=== PATIENT | male | born 1975 | race Caucasian/White ===

== ENCOUNTER → 2018-05-13 | Outpatient (CLI) | payer MEDICAID ==
[2018-05-13 15:54] LABS: Appearance,Urine Clear (Clear); Basophils % (A) 0 %; Bilirubin,Urine Negative (Negative); Blood,Urine Negative (Negative); Color,Urine Yellow; Eosinophils % (A) 0 %; Glucose,Urine (UA) Negative (Negative); HCT 36.7 % (39.0-53.0); HGB 12.6 gm/dL (13.0-17.5); Ketones,Urine Negative (Negative); Leukocyte Esterase,Urine Negative (Negative); Lymphocytes # (A) 0.4 k/uL (1.0-4.8); Lymphocytes % (A) 6 %; MCH 29.9 pg (25.0-35.0); MCHC 34.2 g/dL (31.0-37.0); MCV 87.4 fL (80.0-100.0); Monocytes # (A) 0.3 k/uL (0-1.0); Monocytes % (A) 5 %; Neutrophils # (A) 5.3 k/uL (1.3-7.7); Neutrophils % (A) 88 %; Nitrite,Urine Negative (Negative); PH, Urine 6.5 (5.0-8.0); Platelet Count 165 k/uL (150-450); Protein,Urine Negative (Negative); RDW 13.6 % (11.5-15.5); Specific Gravity,Urine 1.021 (1.001-1.035)
[2018-05-13 17:11] LABS: Erythrocyte Sedimentation Rate 16 mm/hr (0-15)
[2018-05-14 01:17] LABS: Protein, Total 7.3 g/dL (6.2-8.2)
[2018-05-14 01:19] LABS: Rheumatoid Factor 9 IU/mL (0-15)
[2018-05-14 01:29] LABS: Vitamin D 25 Hydroxy 33.6 ng/mL (30.0-100.0)
[2018-05-14 03:06] LABS: Albumin 5.2 g/dL (3.80-4.90); Albumin/Globulin Ratio 2.17 (1.60-3.17); C Reactive Protein 3.5 mg/dL (0.0-0.8); Globulin 2.4 g/dL (1.6-3.3); Potassium 3.9 mmol/L (3.5-5.5); T4, Free (Free Thyroxine) 0.8 ng/dL (0.80-1.80); Total Bilirubin 0.5 mg/dL (0.3-1.2); Total Protein 7.6 g/dL (6.2-8.2); Uric Acid 4.2 mg/dL (3.7-8.7)
[2018-05-14 03:51] LABS: Hepatitis C IgG Antibody Non-Reactive (Non-Reactive)
[2018-05-14 04:07] LABS: Cardiolipin Ab IgG Interp NEGATIVE (NEGATIVE); Cardiolipin Ab IgM Interp NEGATIVE (NEGATIVE); Cardiolipin IgA Antibody <0.5 U/mL; Cardiolipin IgM Antibody 0.5 U/mL; Cyclic Citrullinated Pep IgG NEGATIVE (NEGATIVE); DNA Double-Stranded NEGATIVE (NEGATIVE); RNP 0.2 AI; Scleroderma SC-70 Ab <0.2 AI
--- NOTE | 2018-05-14 07:56 | XR ---
EXAMINATION TYPE: XR hand complete bilateral DATE OF EXAM: 05/13/2018 CLINICAL HISTORY: Bilateral hand pain with no known injury TECHNIQUE: Frontal, lateral and oblique images of the bilateral hands were obtained. COMPARISON: 05/13/2018 FINDINGS: There is no acute fracture/dislocation evident in the either hand. The joint spaces in the both hands demonstrate very mild joint space narrowing of the first carpometacarpal joints bilateral ly with very small marginal osteophytes. Bony proliferation is also seen of the distal interphalange al joint of the second and third digits on the right. The overlying soft tissue appears unremarkable. IMPRESSION: There is no acute fracture or dislocation in either hand. Mild arthropathy is seen bilat erally with the distribution on the right suggesting early osteoarthritis.
--- NOTE | 2018-05-14 08:51 | XR ---
EXAMINATION TYPE: XR wrist complete BILATERAL DATE OF EXAM: 05/13/2018 COMPARISON: Bilateral hand radiograph's of the same date HISTORY: Bilateral wrist pain for months with no known injury. TECHNIQUE: 4 views of bilateral wrists were obtained. FINDINGS: No acute fracture or dislocation is seen of either wrist. Very small marginal mass effect a re seen of the first carpal metacarpal joints bilaterally. Soft tissues are unremarkable. Osseous dem ineralization is also within normal limits. IMPRESSION: Mild bilateral arthropathy at the first carpometacarpal joints.
[2018-05-14 09:33] LABS: Angiotensin-1 Converting Enz. 4 U/L (8-52)
[2018-05-14 12:18] LABS: HLA B27 NEGATIVE
[2018-05-14 13:11] LABS: APTT 38 Sec(s) (<43); Dilute Russell Viper Venom 42 Sec(s) (<44)
[2018-05-14 14:31] LABS: C-ANCA <1:20 Titer (<1:20); P-ANCA <1:20 Titer (<1:20)
[2018-05-15 09:00] LABS: Aldolase 3.4 U/L (1.2-7.6)
[2018-05-16 07:28] LABS: Albumin 4.39 g/dL (3.80-4.90); Gamma Globulin 0.96 g/dL (0.70-1.50)
== END | disposition home or self-care (01) ==
LOC: LABWHC1 14:56
PROVIDERS: ATTEND Physician Assistant Medical
DX: M18.0 Bilateral primary osteoarthritis of first carpometacarpal joints (principal); R76.8 Other specified abnormal immunological findings in serum
CPT/HCPCS: 36415; 80053; 81003; 82085; 82164; 82306; 82550; 83520; 83883; 84165; 84439; 84443; 84550; 85025; 85613; 85652; 85730; 86038; 86140; 86147; 86160; 86162; 86200; 86225; 86235; 86255; 86334; 86431; 86803; 86812; 87340

== ENCOUNTER → 2018-07-04 | Day surgery (SDC) | payer MEDICAID ==
[2018-07-02 10:57] VITALS: BMI 33.2
[~2018-07-04] MED LIST: LACTATED RINGERS 1,000 ML IV SCH; LIDOCAINE 1% 20 ML VIAL (10MG/ML) FOR IV START INTRADERMA ONE; PROPOFOL 10 MG/ML 20 ML VIAL IV ONE; Pre Op ABX Message 1 EACH MISC MISCELLANE ONE
[2018-07-04 12:00] VITALS: TEMP 97.1
--- NOTE | 2018-07-04 13:09 | P.PCN ---
Date of Procedure: 07/04/18 Preoperative Diagnosis: Anemia and intermittent pancytopenia Postoperative Diagnosis: Same Procedure(s) Performed: Bone marrow aspiration and biopsy Anesthesia: MAC Surgeon: Bryce Velasquez Renderer #1: Stated None Estimated Blood Loss (ml): 2 Pathology: other Condition: stable Disposition: same day Indications for Procedure: Persistent normochromic normocytic anemia, and intermittent pancytopenia, with negative workup Operative Findings: Adequate sample Description of Procedure: The procedure was explained in detail to the patient in the office. He presented to the outpatient endoscopy suite where IV access and informed consent was obtained. He was then placed in the left lateral decubitus position. The area over both posterior iliac crest was cleaned and prepped with chlorhexidine and sterile draping. IV sedation was then initiated. Local anesthesia was administered to the right posterior iliac crest with lidocaine. A Jamshidi needle was then inserted and bone marrow aspirate and biopsy obtained. The first biopsy sample was quite small due to which his second pass was made with a better sample obtained. On withdrawal of the needle hemostasis was easily achieved. Blood loss was minimal and recovery from sedation was satisfactory. He appeared to have tolerated the procedure well without any obvious immediate complications.
[2018-07-04 13:17] LABS: Basophils % (A) 1 %; Eosinophils # (A) 0.1 k/uL (0-0.7); Eosinophils % (A) 4 %; HCT 34.8 % (39.0-53.0); HGB 11.8 gm/dL (13.0-17.5); Lymphocytes # (A) 1.1 k/uL (1.0-4.8); Lymphocytes % (A) 38 %; MCH 29.5 pg (25.0-35.0); MCHC 33.8 g/dL (31.0-37.0); MCV 87.3 fL (80.0-100.0); Mean Platelet Volume 7.6; Monocytes # (A) 0.2 k/uL (0-1.0); Monocytes % (A) 7 %; Neutrophils # (A) 1.4 k/uL (1.3-7.7); Neutrophils % (A) 48 %; Platelet Count 136 k/uL (150-450); RBC 3.99 m/uL (4.30-5.90); RDW 13.8 % (11.5-15.5); WBC 2.9 k/uL (3.8-10.6)
[2018-07-04 13:32] VITALS: BP 123/72; PULSE 60; RESP 16
== END | disposition home or self-care (01) ==
LOC: OR 11:32
PROVIDERS: ATTEND Internal Medicine Hematology & Oncology
DX: D64.9 Anemia, unspecified (principal); D61.818 Other pancytopenia; D69.6 Thrombocytopenia, unspecified; G47.33 Obstructive sleep apnea (adult) (pediatric); I10 Essential (primary) hypertension; E78.5 Hyperlipidemia, unspecified; Z99.89 Dependence on other enabling machines and devices; Z79.1 Long term (current) use of non-steroidal anti-inflammatories (NSAID); Z79.899 Other long term (current) drug therapy
CPT/HCPCS: 85025; 38222; J2704

== ENCOUNTER → 2018-11-05 | Outpatient (CLI) | payer MEDICAID ==
--- NOTE | 2018-11-06 07:43 | CT ---
EXAMINATION TYPE: CT ChestAbdPelvis w con DATE OF EXAM: 11/05/2018 INDICATION: Localized enlarged lymph nodes COMPARISON: None CT DLP: 2017 mGycm CONTRAST: Performed with Oral Contrast and with IV Contrast, patient injected with 100 ml mL of Isovue 300. TECHNIQUE: Axial images at 5 mm thick sections. Reconstructed images in the coronal plane. Delayed images through the kidneys. FINDINGS: Lymphadenopathy: There is a 0.9 cm pretracheal superior mediastinal lymph node. No enlarged mediastin al or hilar adenopathy is evident. No suspicious retrocrural adenopathy is evident. No periaortic or retrocaval adenopathy is evident. Obturator canals in the inguinal adenopathy is normal. No iliac angela in abnormal adenopathy is evident. Axillary adenopathy is unremarkable. CT CHEST: Portion of the thyroid visualized is normal. No suspicious lung nodules or focal infiltrates are present. No enlarged mediastinal or hilar adenopathy is evident. The ascending aorta diameter at the level of the main pulmonary artery is 3.6 cm. The main pulmonary artery diameter at the bifurcation is 2.[address] ABDOMEN: Liver: There is moderate fatty infiltration of the liver. Hepatomegaly is present. Spleen: Normal Pancreas: Normal Adrenal glands: The adrenal glands are normal. Gallbladder: Normal Kidneys: No masses are evident. No hydronephrosis is present. No cysts are present. Delayed images were obtained through the kidneys, which remain unremarkable. Aorta: Normal Inferior vena cava: Normal. CT PELVIS: Loops of bowel within the abdomen and pelvis are normal. There are loops of bowel which are incom pletely distended or lack oral contrast limiting their evaluation. Appendix: Not visualized. No suspicious tubular structures are evident Urinary bladder: Normal. Genitourinary structures: Dense prostate calcifications present. Osseous structures: No suspicious lytic or sclerotic lesions. IMPRESSIONS: 1. No suspicious enlarged lymph nodes on CT criteria are evident within the field of view. 2. Hepatomegaly with mild diffuse fatty infiltration.
== END | disposition home or self-care (01) ==
LOC: RADCTMAIN 06:58
PROVIDERS: ATTEND Internal Medicine Hematology & Oncology
DX: K76.0 Fatty (change of) liver, not elsewhere classified (principal)
CPT/HCPCS: 82565; 84520; 71260; 74177; 36415; Q9967

== ENCOUNTER → 2018-11-08 | Outpatient (CLI) | payer MEDICAID ==
--- NOTE | 2018-11-08 16:55 | MR ---
EXAMINATION TYPE: MR shoulder RT wo con DATE OF EXAM: 11/08/2018 COMPARISON: None HISTORY: Right shoulder pain / R/O RTC tear TECHNIQUE: Multiplanar, multisequence imaging of the right shoulder is performed without contrast. FINDINGS: There is mild shoulder joint effusion. There is fluid around the biceps tendon. Subscapularis tendon appears intact. Biceps tendon appears intact. There is severe narrowing of the subacromial joint spac e. There is retraction of the supraspinatus tendon. There is hypertrophic spurring at the AC joint. I see no fracture. There is no evidence of focal bone destruction. IMPRESSION: Large rotator cuff tear with retraction of the supraspinatus tendon. Subacromial joint space narrowin g and impingement. There is humeral head is rubbing on the acromion. Hypertrophic spurring at the AC joint. No fracture. Shoulder joint effusion.
== END | disposition home or self-care (01) ==
LOC: RADMRIMAIN 09:30
PROVIDERS: ATTEND Orthopaedic Surgery
DX: M75.101 Unspecified rotator cuff tear or rupture of right shoulder, not specified as traumatic (principal)

== ENCOUNTER → 2019-04-01 | Outpatient (CLI) | payer MEDICAID ==
[2019-04-01 12:53] LABS: HCT 36.5 % (39.0-53.0); HGB 12.1 gm/dL (13.0-17.5); MCH 29.1 pg (25.0-35.0); MCHC 33.3 g/dL (31.0-37.0); MCV 87.4 fL (80.0-100.0); Mean Platelet Volume 8.3; Platelet Count 135 k/uL (150-450); RBC 4.17 m/uL (4.30-5.90); RDW 13.1 % (11.5-15.5); WBC 3.4 k/uL (3.8-10.6)
[2019-04-01 19:03] LABS: African American GFR (CKD) 104.9 (60.0-200.0); Albumin 4.7 g/dL (3.80-4.90); Albumin/Globulin Ratio 2.76 (1.60-3.17); Anion Gap 6.9 mmol/L (4.00-12.00); Calcium 9.8 mg/dL (8.7-10.3); Carbon Dioxide 28.1 mmol/L (21.6-31.8); Globulin 1.7 g/dL (1.6-3.3); Non-African American GFR(CKD) 90.5 (60.0-200.0); Potassium 3.8 mmol/L (3.5-5.5); Total Bilirubin 0.6 mg/dL (0.2-1.2); Total Protein 6.4 g/dL (6.2-8.2)
[2019-04-01 19:10] LABS: Prolactin 12.2 ng/mL (2.1-17.7); T4, Free (Free Thyroxine) 0.9 ng/dL (0.80-1.80)
[2019-04-01 19:12] LABS: Follicle Stimulating Hormone 2.4 mIU/mL; Luteinizing Hormone 0.8 mIU/mL
[2019-04-01 22:26] LABS: ACTH 10.3 pg/mL (0.00-45.99)
== END | disposition home or self-care (01) ==
LOC: LABWHC1 12:01
PROVIDERS: ATTEND Internal Medicine Endocrinology, Diabetes & Metabolism
DX: E29.1 Testicular hypofunction (principal); E27.40 Unspecified adrenocortical insufficiency; R53.83 Other fatigue
CPT/HCPCS: 36415; 80053; 82024; 82533; 83001; 83002; 84146; 84403; 84439; 84443; 84480; 85027

== ENCOUNTER → 2019-04-16 | Outpatient (CLI) | payer MEDICAID ==
--- NOTE | 2019-04-16 13:05 | MR ---
EXAMINATION TYPE: MR pituitary wo/w con DATE OF EXAM: 04/16/2019 COMPARISON: NONE HISTORY: Abnormal bloodwork, tumor TECHNIQUE: Multiplanar, multisequence images of the brain and brainstem is performed without and with IV contras t, utilizing 10 mL intravenous Gadavist . Pituitary mass protocol was utilized. FINDINGS: There is a heterogenous mass arising from the pituitary gland extending cranially into the suprasella r cistern with marked mass effect on the optic chiasm and hypothalamus. This measures 2.9 x 4.1 x 2.6 cm in anterior posterior by craniocaudal by transverse dimension. This is nearly homogeneously T1 hy pointense with some T1 hyperintensity indicative of either hemorrhage or fat along the cranial and ri ght lateral aspect with surrounding hemosiderin. There is extensive heterogenous postcontrast enhance ment and heterogenous but predominantly hypointense and isointense signal on T2-weighted imaging. The re is mass effect on the cavernous portions of the internal carotid arteries however this mass does n ot encase nor surrounding the internal carotid arteries. The flow voids are maintained. This also abu ts the anterior cerebral arteries and the A2 segment. Again the optic chiasm is markedly elevated on coronal T2 nonfat sat image 14. The remaining visualized portions of the brain are unremarkable. No gross evidence of hydrocephalus. Proteinaceous nonenhancing midline cyst in the posterior oropharynx is incidentally noted measuring 6 mm. 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
== END | disposition home or self-care (01) ==
LOC: RADMRIMAIN 11:44
PROVIDERS: ATTEND Internal Medicine Endocrinology, Diabetes & Metabolism
DX: I67.89 Other cerebrovascular disease (principal)
CPT/HCPCS: 70553; A9585